=== PATIENT | female | born 2000 | race Caucasian/White ===

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

== ENCOUNTER 2022-12-13 11:19 | Outpatient (REF) | payer OTHER, SELFPAY ==
[2022-12-13 14:22] LABS: MANUAL DIFF FLAG NO
[2022-12-13 14:23] LABS: Basophils Absolute Auto 0.1 X10*3/uL (0.0-0.2); Eosinophils Absolute Auto 0.1 X10*3/uL (0.0-0.4); Eosinophils Percent Auto 1.7 % (0-4); Hematocrit 39.7 % (37.0-47.0); Hemoglobin 12.8 g/dl (12.0-16.0); Imm Gran Abs Auto 0.03 X10*3/uL (0.00-0.03); Imm Gran Pct Auto 0.4 % (0.0-0.4); Lymphocytes Absolute Auto 2.2 X10*3/uL (1.2-4.9); Lymphocytes Percent Auto 31.2 % (20-40); Mean Corpuscular HGB Conc 32.2 g/dl (31.0-35.0); Mean Corpuscular Hemoglobin 29.7 pg (27.0-33.0); Mean Corpuscular Volume 92.1 fL (80.0-98.0); Mean Platelet Volume 11.8 fL (9.4-12.3); Monocytes Absolute Auto 0.5 X10*3/uL (0.1-1.2); Monocytes Percent Auto 7.5 % (2-11); Neutrophils Absolute Auto 4.1 x10*3/uL (2.0-8.3); Neutrophils Percent Auto 58.2 % (45-73); Platelet Count 257 X10*3/uL (160-400); Red Blood Count 4.31 X10*6/uL (4.20-5.50); Red Cell Distribution Width 13.5 % (11.0-16.0)
[2022-12-13 15:15] LABS: Alanine Aminotransferase 8 U/L (0-31); Albumin Level 4.1 g/dL (3.5-5.0); Alkaline Phosphatase 67 U/L (39-117); Anion Gap 12 (12-20); Aspartate Amino Transferase 13 U/L (5-31); Bilirubin Total 0.8 mg/dL (0.0-1.0); Blood Urea Nitrogen 10 mg/dL (9-16); C Reactive Protein < 0.10 mg/dL (< or = 0.50); Calcium 9.5 mg/dL (8.4-10.2); Carbon Dioxide 24 mmol/L (22-29); Chloride 106 mmol/L (96-108); Cholesterol 156 mg/dL; Estimated Glomerular Filt Rate > 60; Glucose Fasting 86 mg/dL (60-99); HDL Cholesterol 67 mg/dL; LDL Cholesterol Calculated 79 mg/dl; Potassium 4.2 mmol/L (3.3-5.1); Sodium 138 mmol/L (135-145); Total Protein 7.1 g/dL (6.5-8.0); Triglycerides 53 mg/dL
[2022-12-13 15:35] LABS: Vitamin D 25-OH Total 32.2 ng/mL (>30)
[2022-12-13 15:38] LABS: Vitamin B12 430 pg/mL (200-900)
== END 2022-12-13 11:20 | disposition home or self-care (01) ==
LOC: HO.WFDLDS 11:19
PROVIDERS: Visit Provider Internal Medicine
DX: Z00.01 Encounter for general adult medical examination with abnormal findings (principal); Z13.1 Encounter for screening for diabetes mellitus; Z13.220 Encounter for screening for lipoid disorders; G44.52 New daily persistent headache (NDPH)
CPT/HCPCS: 36415; 80053; 80061; 82306; 82607; 82746; 84443; 85025; 86140

== ENCOUNTER → 2023-01-24 15:25 | Outpatient (BNVA) | payer OTHER, SELFPAY | PROVIDERS: PCP Internal Medicine; Visit Provider Nurse Practitioner Family ==

== ENCOUNTER 2023-01-24 15:41 | Outpatient (AMB) | payer OTHER, SELFPAY ==
--- NOTE | 2023-01-24 15:26 | A.OFFVIS_ITS ---
Intake Intake Visit Reasons: NPV Migraines (approved Vibha Mahajan)- Confirmed Intake Note: Pt is here today for migraines. States shes been suffering for years from headaches, has seen Neurologist and therapist c little to no relief . Allergies No Known Allergies Allergy (Verified 01/24/23 15:26) Medication List - Last Reconciled 01/24/23 by Nydia Mckinney, MIMI galcanezumab-gnlm (Emgality Pen) mg subcut topiramate (Topamax) 50 mg PO BID HPI HPI Comments History of Present Illness Details 22-yr-old female presents for new pt reema luation of headache disorder. Pt reports she developed a new headache 2 yrs ago on 01/20/21. From onset, the headache became constant. She denies any preceding infection, travel, injury. She has tried many acute and preventive medications w/ no or minimal effect. She has been followed by Dr Jarrett, neurologist close to her college in [place], who dx'd her w/ NDPH. Pt was offered Vyepti, however Since, pt has been referred to [facility]- consult scheduled for ? Mar. She states she had a similar headache when she was in middle school. It also came upon out of the blue suddenly, while in the middle of doing homework. The headcahe lasted for 1.5 yrs, and then one day just stopped. During that time, she had tried accupuncture and hypnosis. Headache questionnaire: Previous work-up? Brain/head MRI, MRV- normal. LP- OP 7 cmH2O w/ normal basic CSF studies, Eye exam- WNL. Typical headache characteristics: Prodrome symptoms? None Aura? None Location, quality, characteristics? Bifraontal pulsating, squeezing Pain intensity? Usualy 7-8/10. Every few months, more severe at 10/10 every 3-4 months (last one was 6 months). Associated symptoms? Sun-sensitivity. Focal weakness, Parethesias, Autonomic s/s? None Postdrome? None- constant Triggers? heat, weather changes Any positional, valsalva, exertional, sexual activity triggers? When headache is severe, sitting up makes it worse. Menstrual triggers? None. Menses is regular. Time of day? n/a- constant headache Duration and Frequency? Constant How does headache impact your life? May need to miss her activities/classes- but tries not to. 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 Current acute medication use/interventions: Nothing currently helping Previous acute medication use: Ubrelvy 50-100mg- ineffective, Nurtec- ineffective, Medrol 4mg- ineffective, Rizatriptan- not tolerated and ineffective, Naproxen- ineffective, Ibuprofen- ineffective, Tylenol- ineffective. Current preventative medication use: [] Previous preventative medication use: Venlafaxine 37.5-75mg- ineffective, Qulipta 60mg- made MATTHEWS worse, Duloxetine 20mg and 60mg- ineffective, Depakote 500mg- ineffective, Co-Q 10- ineffective, Mag- ineffective, B2- ineffective, Propranolol 10mg- made MATTHEWS worse, Emgality- ineffective, Topiramate- ineffective. Non-pharmacological interventions: PT- ineffective. Cupping- helps some. Pt also endorses- recent dizziness- however she attributes this to the increased summer heat. When severe, activity intolerance. Pt denies- any neck injuries, neck pain. [facility] Medical History New daily persistent headache (ndph) Surgical History No pertinent past surgical history Family History Maternal Grandfather Diabetes mellitus Paternal Grandmother Breast cancer Arrhythmia Social History Housing: House Alcohol intake: never Patient Tobacco Use Status: Never used Tobacco e-Cigarette/Vaping Use: Never Used service: No Current occupational status: employed and student Cognitive needs: No Hearing needs: No Vision needs: Yes Review of Systems Const Details: See scanned ROS form Physical Exam Const General: cooperative, healthy appearing, no acute distress and well developed Orientation/consciousness: patient oriented x3 Resp Effort & Inspection: normal respiratory effort and able to speak in complete sentences Neuro General: patient oriented x3 Cognition (Neuro): normal cognition Psych Appearance: grossly normal Mental Status: mental status grossly normal Speech and movement: Normal speech and movement present Affect: normal affect Attitude: cooperative Thought process: Normal thought process present Assessment & Plan Assessment & Plan (1) New daily persistent headache (ndph): Code(s): G44.52 - New daily persistent headache (NDPH) Plan Pt's headache s/s are consistent w/ NDPH. However her LP did show a low normal OP. I have advised her to try Aimovig 140mg sc q month, as she has not tried this before. Discussed that I concur w/ referral to the [facility], as they may be able to offer her more aggressive tx and further work-up. F/u in 3-4 months or sooner prn. Medications: New erenumab-aooe (Aimovig Autoinjector) 140 mg subcut ONCE 1 mL 6RF 30 days Telehealth Telehealth Location of provider rendering services: practice address Location of patient: address on file Patient Identification confirmed using: Name, : Yes Telehealth method: video Patient verbally consented to treatment: Yes Patient verbally consented to billing insurance company: Yes Patient informed of any privacy concerns related to visit: Yes Minutes spent on Phone/Video with Pt.: 40 Coding Level of Care Code Tele New Pt Level 4 (23907) Diagnoses New daily persistent headache (ndph) G44.52
== END 2023-01-24 16:00 ==
PROVIDERS: PCP Internal Medicine; Visit Provider Nurse Practitioner Family
DX: G44.52 New daily persistent headache (NDPH) (principal)
CPT/HCPCS: 99204

== ENCOUNTER 2023-06-06 14:25 | Outpatient (REF) | payer OTHER, SELFPAY | END 2023-06-06 14:26 | disposition home or self-care (01) | LOC: HO.HOSX 14:25 | PROVIDERS: PCP Internal Medicine; Visit Provider Orthopaedic Surgery | DX: M25.562 Pain in left knee (principal) | CPT/HCPCS: 73562 ==

== ENCOUNTER 2023-06-06 14:25 | Outpatient (AMB) | payer OTHER, SELFPAY ==
--- NOTE | 2023-06-06 14:26 | MHC.OFFVIS ---
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 She is experiencing a sharp pain on the inside of the left knee and is having trouble straightening it after having it bent for an extended period of time. She reports the onset of pain as March 2023, unsure of the cause, but assumes it is a sport related injury. 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 occupational status: employed and student Cognitive needs: No Hearing needs: No Vision needs: Yes Physical Exam Vital Signs: BMI result Body Mass Index 24.8 Const Other: Well-nourished well-developed very friendly female awake alert and oriented x3 in no acute distress Extrem Other: Left knee examination shows a minimal effusion, no crepitus with range of motion, tenderness along her medial joint line, positive Vladimir's test, no instability Results Reviewed Results Reviewed: X-rays of the patient's left knee show no significant degenerative changes, no acute bony abnormalities Assessment & Plan Assessment & Plan (1) Left knee pain: Code(s): M25.562 - Pain in left knee Plan Ms. Gamboa presents with left knee pain and mechanical symptoms possibly due to a tear of her medial meniscus. Thus, I will send her for an MRI of her left knee for further evaluation. She will contact me prior to her MRI should her symptoms worsen in any way. I spent 20 minutes in reviewing the patient's records and imaging studies, seeing the patient and documenting in the medical record. Orders: Orders XR knee LT 3V Today M25.562 - Pain in left knee MR knee LT wo con Today M25.562 - Pain in left knee Coding Level of Care Code New Pt Level 2 (23956) Diagnoses Left knee pain M25.562
[2023-06-06 14:28] VITALS: BMI 24.8
== END 2023-06-06 15:10 | disposition home or self-care (01) ==
PROVIDERS: PCP Internal Medicine; Visit Provider Orthopaedic Surgery
DX: M25.562 Pain in left knee (principal)
CPT/HCPCS: 99202

== ENCOUNTER 2023-06-07 15:39 | Outpatient (REF) | payer OTHER, SELFPAY | END 2023-06-07 15:40 | disposition home or self-care (01) | LOC: HO.MRI 15:39 | PROVIDERS: Visit Provider Orthopaedic Surgery | DX: M25.562 Pain in left knee (principal) | CPT/HCPCS: 73721 ==

== ENCOUNTER 2023-12-11 09:17 | Outpatient (AMB) | payer OTHER, SELFPAY ==
[2023-12-11 09:22] VITALS: BP 100/70; PULSE 80; O2SAT 100; BMI 25.9
--- NOTE | 2023-12-11 09:22 | MHC.PC.OV ---
Vital Signs 12/11/23 09:22 Height 5 ft 3 in Weight 146 lb BMI 25.9 BP 100/70 Blood Pressure Location Rt brachial Position Sitting Pulse 80 Pulse Source Pulse Oximeter Pulse Oximetry (%) 100 Oxygen Delivery Method Room Air Intake Visit Reasons: Annual PE Intake Note: Pt is here today for her PE Is last menstrual period known: Yes Last menstrual period: 11/27/23 Allergies No Known Allergies Allergy (Verified 12/11/23 09:48) Medication List - Last Reconciled 12/11/23 by Sulma White MD onabotulinumtoxinA (Botox) units intradermal Tobacco use date assessed: 12/11/23 Dental Screening Dental Screen Date: 12/11/23 Did you have a dental visit in the last 12 months?: Yes Did you have a dental problem in the last 6 months where you did not have access to dental care?: No Was dental information given to patient?: Patient has dentist HPI Annual PE HPI Details 23-year-old lady here today for physical exam. She is currently sees a neurologist in [place], gets Botox injections for headache prevention every 3 months which has been helping. She has been feeling well , stays active, avoids junk food, has no complaints at present time. 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 1. Little interest or pleasure in doing things: not at all 2. Feeling down, depressed, or hopeless: not at all 3. Trouble falling or staying asleep, or sleeping too much: several days 4. Feeling tired or having little energy: not at all 5. Poor appetite or overeating: not at all 6. Feeling bad about yourself - or that you are a failure or have let yourself or your family down: not at all 7. Trouble concentrating on things, such as reading the newspaper or watching television: not at all 8. Moving or speaking so slowly that other people could have noticed. Or the opposite - being so fidgety or restless that you have been moving around a lot more than usual: not at all 9. Thoughts that you would be better off or of hurting yourself in some way: not at all Total score: 1 Depression Screening Interpretation: Negative Depression Screening Done: Yes 76150 - PHQ-9 Billing: Yes Source: Developed by Drs. Klever José, Shawnee Brandt, Pavel Narayan and colleagues, with an educational prieto from [employer]. Thrive Questionnaire Date Thrive assessed: 12/11/23 I am a: Patient What is your living situation today?: I have a steady place to live Within the past 12 months, did the food you bought not last and you didn't have the money to get more?: Never true Within the past 12 months, did you worry whether your food would run out before you got money to buy more?: Never true Do you have trouble paying for medicines?: No Do you have trouble getting transportation to medical appointments?: No Do you have trouble paying your heating and electricity bill?: No Do you have trouble taking care of your child, family member or friend?: No Do you have trouble with day-to-day activities such as bathing, preparing meals, shopping, managing finances, etc.?: No Are you currently unemployed and looking for a job?: No Are you interested in more education?: No THRIVE Score: 0 AUDIT C Alcohol Use Questionnaire (AUDIT-C) 1. How often do you have a drink containing alcohol?: Monthly or less 2. How many drinks containing alcohol do you have on a typical day when you are drinking?: 3 or 4 3. How often do you have six or more drinks on one occasion?: Never Total Score: 2 LILO-7 AMB Questionnaire LILO-7 Date LILO - 7 assessed: 12/11/23 Feeling nervous, anxious, or on edge: 0 = Not at all Not being able to stop or control worryin = Not at all Worrying too much about different things: 0 = Not at all Trouble relaxin = Not at all Being so restless that it is hard to sit still: 0 = Not at all Becoming easily annoyed or irritable: 0 = Not at all Feeling afraid as if something awful might happen: 0 = Not at all Total LILO-7 score (0-4 normal; 5-9 mild; 10-14 moderate; 15-21 severe): 0 Source: Developed by Drs. Klever José, Shawnee Brandt, Pavel Narayan and colleagues, with an educational prieto from [employer]. LILO-7 Assessment Billing LILO-7 Assessment Tool: LILO-7 Assessment 79092 Review of Systems Const Denies body aches, Denies fatigue, Denies fever(s), Denies lethargy and Denies weakness Eyes Denies change in vision ENT Denies dizziness, Denies nasal congestion, Denies nasal discharge and Denies sore throat Card Denies chest pain, Denies lightheadedness, Denies palpitations and Denies dyspnea Resp Denies chest congestion, Denies cough, Denies dyspnea and Denies wheezing GI Denies abdominal pain, Denies change in bowel habits and Denies heartburn Denies hematuria, Denies urinary frequency, Denies dysuria and Denies urinary urgency Musc Reports no additional complaints Skin/Breast Denies breast pain, Denies breast mass, Denies lesions and Denies rash Neuro Denies dizziness, Denies Sensory deficit (Neuro) and Denies weakness Psych Reports no additional complaints Endo Denies fatigue, Denies polydipsia, Denies polyuria and Denies palpitations Isaiah/Lymph Denies easy bruising Aller/Immun Denies seasonal rhinorrhea and Denies wheezing Physical exam (Primary Care) Vital Signs: Last Vital Signs Pulse 80 12/11/23 09:22 BP 100/70 12/11/23 09:22 Pulse Ox 100 12/11/23 09:22 Oxygen Delivery Method Room Air 12/11/23 09:22 BMI result Body Mass Index 25.9 Tobacco/Smoking Status: Tobacco use Status Tobacco use date assessed 12/11/23 12/11/23 09:32 Patient Tobacco Use Status Never used Tobacco 12/11/23 09:23 e-Cigarette/Vaping Use Never Used 12/11/23 09:23 PHQ-9: PHQ-9 Score PHQ-9: Total score 1 12/11/23 09:32 Depression Screening Interpretation: Negative Thrive Assessment: Date of Thrive Assessment Date Thrive assessed 12/11/23 12/11/23 09:32 Const General: no acute distress Nutritional Appearance: average body habitus Orientation/consciousness: patient oriented x3 Limitations: no limitations HENMT Head: Yes normocephalic Ears: hearing grossly normal bilaterally, external ears normal, TM's normal bilaterally and EAC's normal General nose exam: Normal external nose present Face and sinus: Yes face symmetric Mouth: Normal oral and palatal mucosa present, oropharynx normal and moist mucous membranes Eyes General: appearance normal, both eyes and all related structures Periorbital: periorbital findings normal Pupils: Equal, round and reactive pupils present EOM: EOMs intact bilaterally Neck Neck: Yes full ROM, Yes no lymphadenopathy and Yes supple Thyroid: Thyroid normal Chest Chest palpation & inspection: normal inspection of the chest Breast/axilla inspection: normal inspection of the breasts Breast/axilla palpation: normal palpation of the breasts Resp Effort & Inspection: normal respiratory effort and able to speak in complete sentences Auscultation: clear to auscultation bilaterally Cardio Palpation: normal PMI Rate: regular rate Rhythm: regular rhythm Heart sounds: S1 normal heart sound present and S2 normal heart sound present GI Inspection: Yes normal to inspection Palpation (GI): Soft to palpation, nontender, no guarding and no masses Auscultation: normal bowel sounds General: Yes no CVA tenderness and Yes deferred Back/Spine/Pelvis Back: no CVA tenderness and No back tenderness Skin Other: Positive navel piercing General skin exam: no rashes or lesions noted Lesions: no lesions Rashes: no rashes Neuro General: patient oriented x3, gait normal, tone normal, moves all extremities, Normal light touch and pain sensation, no focal motor deficits and CN's II-XI intact bilaterally Cranial nerves: Yes Equal, round and reactive pupils present Cognition (Neuro): normal cognition Gait exam (Neuro): Normal gait present Motor exam (neuro): 5/5 motor strength present throughout Sensory Exam: No Sensory deficit (Neuro) Extrem General: Yes full ROM, Yes no joint enlargement, Yes no clubbing, cyanosis or edema and Yes normal gait Psych Appearance: grossly normal Mental Status: mental status grossly normal Speech and movement: Normal speech and movement present Affect: normal affect Thought process: Normal thought process present Thought content: Normal thought content present Assessment and Plan Assessment & Plan (1) Annual visit for general adult medical examination with abnormal findings: Code(s): Z00.01 - Encounter for general adult medical examination with abnormal findings Plan: Fasting labs ordered today, continue with regular dental prophylaxis every 6 months, recently had Lasix surgery 06/2023 in [place]. Has had COVID vaccines in the past but does not want to get the booster, reminded to get her yearly flu shot, up-to-date with Tdap. Not sexually active, patient deferred getting pelvic exam and Pap smear at this time (2) New daily persistent headache (ndph): Code(s): G44.52 - New daily persistent headache (NDPH) Plan: Currently seeing sees a neurologist in [place], gets Botox injections on scalp every 3 months which has been helping, copy of last office visit requested Orders: Orders Glucose Fasting Today G44.52 - New daily persistent headache (NDPH), Z00.01 - Encounter for general adult medical examination with abnormal findings, Z13.1 - Encounter for screening for diabetes mellitus, Z13.220 - Encounter for screening for lipoid disorders Vitamin D 25-OH Total Today G44.52 - New daily persistent headache (NDPH), Z00.01 - Encounter for general adult medical examination with abnormal findings, Z13.1 - Encounter for screening for diabetes mellitus, Z13.220 - Encounter for screening for lipoid disorders, Z98.890 - Other specified postprocedural states Lipid Panel Today G44.52 - New daily persistent headache (NDPH), Z00.01 - Encounter for general adult medical examination with abnormal findings, Z13.1 - Encounter for screening for diabetes mellitus, Z13.220 - Encounter for screening for lipoid disorders, Z98.890 - Other specified postprocedural states Coding Level of Care Code Est Pt Prev Care 18-39y(25520) Diagnoses Annual visit for general adult medical examination with abnormal findings Z00.01 New daily persistent headache (ndph) G44.52 Additional Codes LILO-7 Assessment Billing - LILO-7 Assessment Tool: LILO-7 Assessment 36977 ([id number])
== END 2023-12-11 09:56 | disposition home or self-care (01) ==
PROVIDERS: Visit Provider Internal Medicine
DX: Z00.00 Encounter for general adult medical examination without abnormal findings (principal); G44.52 New daily persistent headache (NDPH)
CPT/HCPCS: 99395

== ENCOUNTER 2025-02-07 10:18 | Outpatient (AMB) | payer OTHER, SELFPAY ==
[2025-02-07 10:35] VITALS: BP 110/60; PULSE 90; O2SAT 99; BMI 24.8
--- NOTE | 2025-02-07 10:35 | A.OFFVIS_ITS ---
Vital Signs 02/07/25 10:35 Height 5 ft 3 in Weight 140 lb BMI 24.8 BP 110/60 Blood Pressure Location Rt brachial Position Sitting Pulse 90 Pulse Source Pulse Oximeter Pulse Oximetry (%) 99 Oxygen Delivery Method Room Air Intake Visit Reasons: Re-evaluation for botox Intake Note: Pt is here today for migraines. States shes been suffering for years from headaches, has seen Neurologist and therapist c little to no relief . [facility] Required: No Accompanied by: Self / Same As Patient Allergies No Known Allergies Allergy (Verified 02/07/25 10:48) HPI Comments Details: 24-yr-old female presents for follow-up of chronic migraine to reestablish care, as she has moved back to the area after graduating from college. Since the last visit, she started seeing a neurologist in [facility], who started her on Botox over a year ago. She was doing the botox every 3 months. She reports the botox helps to reduce the intensity of her migraine attacks, until the last 2 weeks of her botox injection cycle. Her last Botox injection was on 12/30/2024. She reports that her previous neurologist was considering augmenting her migraine treatment regimen, but then advise patient to follow-up on this upon return home She is not currently on any other preventive or abortive tx's. She states her last headcahe free day was 01/19/2021. 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 01/24/2023, initial HPI: 22-yr-old female presents for new pt evaluation of headache disorder. Pt reports she developed a new headache 2 yrs ago on 01/20/21. From onset, the headache became constant. She denies any preceding infection, travel, injury. She has tried many acute and preventive medications w/ no or minimal effect. She has been followed by Dr Jarrett, neurologist close to her college in [place], who dx'd her w/ NDPH. Pt was offered Vyepti, however Since, pt has been referred to [facility]- consult scheduled for ? Mar. She states she had a similar headache when she was in middle school. It also came upon out of the blue suddenly, while in the middle of doing homework. The headcahe lasted for 1.5 yrs, and then one day just stopped. During that time, she had tried accupuncture and hypnosis. Headache questionnaire: Previous work-up? Brain/head MRI, MRV- normal. LP- OP 7 cmH2O w/ normal basic CSF studies, Eye exam- WNL. Typical headache characteristics: Prodrome symptoms? None Aura? None Location, quality, characteristics? Bifraontal pulsating, squeezing Pain intensity? Usualy 7-8/10. Every few months, more severe at 10/10 every 3-4 months (last one was 6 months). Associated symptoms? Sun-sensitivity, nausea Focal weakness, Parethesias, Autonomic s/s? None Postdrome? None- constant Triggers? heat, weather changes Any positional, valsalva, exertional, sexual activity triggers? When headache is severe, sitting up makes it worse. Menstrual triggers? None. Menses is regular. Time of day? n/a- constant headache Duration and Frequency? Constant How does headache impact your life? May need to miss her activities/classes- but tries not to. 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 Current acute medication use/interventions: Nothing currently helping Previous acute medication use: Ubrelvy 50-100mg- ineffective, Nurtec- ineffective, Medrol 4mg- ineffective, Sumatriptan- ineffective, Rizatriptan- not tolerated and ineffective, Naproxen- ineffective, Ibuprofen- ineffective, Tylenol- ineffective. Current preventative medication use: none Previous preventative medication use: Venlafaxine 37.5-75mg- ineffective, Qulipta 60mg- made MATTHEWS worse, Duloxetine 20mg and 60mg- ineffective, Depakote 500mg- ineffective, Co-Q 10- ineffective, Mag- ineffective, B2- ineffective, Propranolol 10mg- made MATTHEWS worse, Emgality- ineffective, Topiramate- ineffective. Non-pharmacological interventions: PT- ineffective. Cupping- helps some. Pt also endorses- recent dizziness- however she attributes this to the increased summer heat. When severe, activity intolerance. Pt denies- any neck injuries, neck pain. [facility] Medical History (Updated 02/07/25 @ 16:51 by MIMI Correa) New daily persistent headache (ndph) Surgical History History of arthroscopy of left knee Hx of LASIK No pertinent past surgical history Family History Maternal Grandfather Diabetes mellitus Paternal Grandmother Breast cancer Arrhythmia Social History Housing: House Alcohol intake: never Patient Tobacco Use Status: Never used Tobacco e-Cigarette/Vaping Use: Never Used service: No Current occupational status: employed and student Cognitive needs: No Hearing needs: No Vision needs: Yes Review of Systems Const Details: See scanned ROS form Physical Exam Vital Signs: Last Vital Signs Pulse 90 02/07/25 10:35 BP 110/60 02/07/25 10:35 Pulse Ox 99 02/07/25 10:35 Oxygen Delivery Method Room Air 02/07/25 10:35 BMI result Body Mass Index 24.8 Const General: cooperative, healthy appearing, no acute distress and well developed Orientation/consciousness: patient oriented x3 Resp Effort & Inspection: normal respiratory effort and able to speak in complete sentences Neuro General: patient oriented x3 Cognition (Neuro): normal cognition Psych Appearance: grossly normal Mental Status: mental status grossly normal Speech and movement: Normal speech and movement present Affect: normal affect Attitude: cooperative Thought process: Normal thought process present Telehealth Telehealth Location of provider rendering services: practice address Location of patient: address on file Patient Identification confirmed using: Name, : Yes Telehealth method: video Patient verbally consented to treatment: Yes Patient verbally consented to billing insurance company: Yes Patient informed of any privacy concerns related to visit: Yes Minutes spent on Phone/Video with Pt.: 40 Assessment & Plan Assessment & Plan (1) Chronic migraine without aura without status migrainosus, not intractable: Code(s): G43.709 - Chronic migraine without aura, not intractable, without status migrainosus Category: Medical (2) New daily persistent headache (ndph): Code(s): G44.52 - New daily persistent headache (NDPH) Category: Medical Plan For overall headache management: * Optimize good self-care, including but not limited to maintaining a healthy diet, adequate fluid intake, adequate sleep, and engaging in regular physical activity. * Track headaches and both positive and negative effects of your headache treatment trials, especially after any treatment regimen changes. * Migraine Buddies is one of many headache tracking apps. * A simple paper calendar is also a good option. For acute (as needed) headache treatment: It is important to take acute medications at the first sign of headache. However, please be aware that frequently using most acute medications may increase the frequency of your headache attacks, as well as make your other arnoldo tments less effective. * Start Elyxyb, 120mg liquid solution, at onset of migraine attack. Max of 120 mg dose per day. * Trial Sumatriptan 6 mg subcutaneous injection: * Inject 1 injection at onset of migraine attack, you may repeat in 1 hour. Max of 2 injections per per 24 hours. * May take sumatriptan with OTC Tylenol 650-1,000mg every 4-6 hours, Ibuprofen (liquid gels) 600mg every 6 hours, or Naproxen (liquid gels) 440mg q 12 hrs prn. * Potential adverse effects of injectable triptans, include but are not limited to injection site irritation, nausea, fatigue, chest tightness/tingling (usually passes within a few minutes), medication overuse headaches. * Start Trudhesa (Dihydroergotamine Nasal [place]) * One spray in each nostril (total 2 sprays = 1.45 mg). * If needed: You may repeat after 1 hour. * Maximum: 4 sprays in 24 hours (2 doses). Do not use more than 6 sprays (3 doses) in 7 days.[id number] Instructions * Prime the device (first use only): [place] into the air 4 times. * Prepare: Blow your nose gently before using. [place]: * Insert the nozzle into one nostril. * Close the other nostril with your finger. * While breathing in gently through your nose, press the plunger all the way down. * Repeat in the other nostril if your dose requires it. Important Safety Notes * Do not use if you have developed heart disease, uncontrolled high blood pressure, circulation problems, or if you?ve recently taken another migraine medicine like a triptan or ergotamine. * Common side effects may include nasal congestion, altered taste, or mild irritation. Previous acute migraine medication trials: Ubrelvy 50-100mg- ineffective, Nurtec- ineffective, Medrol 4mg- ineffective, Sumatriptan- ineffective, Rizatriptan- not tolerated and ineffective, Naproxen- ineffective, Ibuprofen- ineffective, Tylenol- ineffective. Acute migraine medication contraindications: Considered Cambia- however holf for now as NSAIDs have induced migraine before For headache prevention medication: Preventative medications should be taken routinely as prescribed for best effect, it may take several weeks for full effect to take effect. * Continue Botox 155 units IM every 12 weeks (advised to schedule Botox every 12 weeks rather than every 3 months, to reduce risk for wearing off) * Last Botox injection was on 12/30/2024 at patient's previous neurology office * As Botox has been helpful, but not fully effective and patient is experiencing reduced intensity but still daily headache and end of cycle breakthrough severe migraine, resume Ajovy 675 mg subcutaneous injection every 90 days (administer at the midway point between Botox injections)- in hopes together these will be more effective than when previously tried on their own. Previous migraine prevention medication trials: Venlafaxine 37.5-75mg- ineffective, Qulipta 60mg- made MATTHEWS worse, Duloxetine 20mg and 60mg- ineffective, Depakote 500mg- ineffective, Co-Q 10- ineffective, Mag- ineffective, B2- ineffective, Propranolol 10mg- made MATTHEWS worse, Emgality- ineffective, Topiramate- ineffective. ?Aimovig x?s 3 months-ineffective. Migraine prevention medication contraindications: Depakote- few to female child. We will follow-up upon review of above and with a follow-up clinic visit in 6 months or sooner as needed. Medications: New dihydroergotamine (Trudhesa) 1 actuation in each nostril x1, may repeat dose x1 after 1h intranasally once; (Max: 4 actuations/day, 6 actuations/wk). Do NOT take w/in 24 hrs of a TRIPTAN. 4 mL 6RF prolonged migraine 28 days G43.109 - Migraine with aura, not intractable, without status migrainosus onabotulinumtoxinA (Botox) inject 155 units IM across forehead, scalp, and neck 200 units IM ONCE 1 ea 3RF 12 weeks G43.709 - Chronic migraine without aura, not intractable, without status migrainosus celecoxib (Elyxyb) administer as needed the fewest number of days per month 120 mg (4.8 mL) PO DAILY PRN 28.8 mL 6RF migraine headache 30 days sumatriptan succinate 6 mg subcutaneously At onset of severe migraine attack a/w nausea, may repeat in 1 hour PRN; 6 mL 6RF Severe migraine attack with nausea 30 days MDD 12 mg Coding Level of Care Code Est Pt Level 4 (59533) Diagnoses Chronic migraine without aura without status migrainosus, not intractable G43.709 New daily persistent headache (ndph) G44.52
--- OUTSIDE RECORDS SUMMARY | 2025-02-07 11:23 | XMS_ITS | Encounter Summary ---
Author Organization [facility] Address [address] [place] [phone] Phone Care Team Providers Care Or Rn Name Role Phone Charlotte Chang MD Primary Care Provider [phone] Encounter Details Date Type Department Care Team (Late st Contact Info) Description 10/22/2017 Conversion Encounter [facility] [address] [place] [address] Julianne Ma MD Social History Tobacco Use Types Packs/Day Years Used Date Smoking Tobacco: Never Assessed Comments Unknown Sex and Gender Information Value Date Recorded Sex Assigned at Female 09/28/2020 3:14 PM EDT Legal Sex Female 6:22 PM EDT Gender Identity Female 09/28/2020 3:14 PM EDT Sexual Orientation Straight 09/28/2020 3: 14 PM EDT documented as of this encounter Plan of Treatment Not on file documented as of this encounter Visit Diagnoses Not on filedocumented in this encounter Care Teams Or Rn Relationship Specialty Start Date End Date Charlotte Chang MD [address] [place] [address] PCP - General Pediatrics 10/07/22 05/19/24 documented as of this encounter
--- OUTSIDE RECORDS SUMMARY | 2025-02-07 11:23 | XMS_ITS | Patient Health Record ---
Author Organization [facility] Address [address] [place] [address] Care Team Providers Care Military Cook Name Role Phone Julianne Ma Primary Care Provider Massiel Diaz Unavailable [phone] Reason For Referral No Information Medications Medication SIG (Take, Route, Frequency, Duration) Notes Start Date End Date Status School Note . . . Pt was seen in [facility] today; Duration: . 03/06/2019 Active vitamin as directed Active Social History Tobacco Use: Social History Observation Description Date Details (start date - stop date) Never Smoker NA - NA Tobacco Use/Smoking Question Answer Notes Are you a: nonsmoker Alcohol Screen Question Answer Notes Did you have a drink containing alcohol in the p ast year? No Points 0 Interpretation Negative Problems No Known Problems Plan Of Treatment Pending Test Test Name Order Date X ray : Foot, left 3V 10/02/2012 X ray : Foot, right 3V 02/08/2019 X ray : Foot, right 3V 10/02/2012 Insurance Providers Payer Name Payer Address Payer Phone Subscriber Number Group Number Insured Name Patient Relationship to Insured Coverage Start Date Coverage End Date [facility] [address] [address] [place] [address] [id number] Edmundo Gamboa Natural Child - Insured has Financial Responsibility Medical (General) History Medical History History ICD Code Broken Bones Plantar Fasciitis Surgical History Surgery Date(Month/Year) closed red L Ankle 2013 [place] 2018
--- OUTSIDE RECORDS SUMMARY | 2025-02-07 11:23 | XMS_ITS | Clinical Summary ---
Author Organization [facility] Address [address] [place] [phone] Phone Care Team Providers Care Implementation Engineer Name Role Phone Unavailable Primary Care Provider Unavailabl e Allergies No known active allergies Medications Multiple Vitamin (MULTIVITAMIN) tablet Take 1 tablet by mouth daily. Active Active Problems Problem Noted Date Diagnosed Date Influenza vaccine refused 08/20/2018 Headache 03/19/2015 Overview (02/03/2021): Starting PT in [place] for bilateral MATTHEWS that is interferingher from playing soccer Resolved Problems Problem Noted Date Diagnosed Date Resolved Date Plantar fasciitis of left foot 08/20/2018 09/29/2020 Overview (02/09/2019): 02/08/19: [facility] consult Assessment & Plan (09/27/2019 2:51 PM EDT): No longer an issue unless running, followed by podiatry. Assessment & Plan (08/20/2018 4:20 PM EDT): Intermittent aggravation. Does not wear inserts that mom bought her. Has not been doing exercises provided by dance PT. Offered list of podiatrists for family to explore however reviewed basis of treatment including antiinflammatory meds, exercise and supportive shoe inserts. Headache 03/19/2015 09/27/2019 Overview (08/13/2018): Headache Assessment & Plan (09/27/2019 2:50 PM EDT): Resolved. Assessment & Plan (08/20/2018 4:32 PM EDT): Gets headache about once every 2 weeks- manageable without meds. Not missing school. Not seeing Neurology at this time. Immunizations Immunization Administration Dates Next Due DTaP 08/14/2007, 4,02/13/2003,12/10,2002 Hep B, ped/adol 05/22/2003,2002,2002 Hib (PRP-T) 11/19/2003, 3,2002,10/15 IPV 08/14/2007, 3,2002,10/15 Influenza, injectable, quadrivalent 06/02/2020,1 06/08/2010,03/01/2010 Influenza, injectable, triva lent, preservative free 04/12/2005,04/15/2004,05/22/2003 MMR 09/04/2003 MMRV 08/08/2006 Meningococcal Conj (Menactra) MCV4P 08/20/2018,0 09/27/2013 Pneumococcal Conjugate 04/15/2004,2002,2002,10/15 Tdap 09/27/2013 Varicella 09/04/2003 Family History Medical History Relation Name Comments No Known Problems Father Edmundo No Known Problems Father's Brother No Known Problems Father's Sister Diabetes Maternal Grandfather Hyperlipidemia Maternal Grandfather Hypertension Maternal Grandmother No Known Problems Mother Melany Hyperlipidemia Paternal Grandfather Hyperlipidemia Paternal Grandmother Parkinsonism Paternal Grandmother Relation Name Status Comments Father Edmundo Alive Father's Brother Alive Father's Sister Alive Maternal Grandfather Alive Maternal Grandmother Alive Mother Melany Alive Paternal Grandfather Alive Paternal Grandmother Alive Sister Lianna Alive Social History Tobacco Use Types Packs/Day Years Used Date Smoking Tobacco: Never Smokeless Tobacco: Never Alcohol Use Standard Drinks/Week Comments Never 0 (1 standard drink = 0.6 oz pur e alcohol) Hunger/Food Answer Date Recorded In the last 12 months, did y ou or your family ever eat less than you felt you should because there wasn't enough money for food? No 09/26/2020 Stable Housing Answer Date Recorded Are you worried that in the next 2 months you may not have stable housing? No 09/26/2020 Transportation Concerns Answer Date Rec orded In the last 12 months, have you or your family ever had to go without healthcare because you didn't have a way to get there? No 09/26/2020 Hazards in Home Answer Date Recorded Think about the place you li ve. Do you have problems with any of the following? Pests (mice or roaches), mold, no/not working smoke detectors, water leaks, no window guards. No 2020 Financing Utilities Answer Date Recorde d In the last 12 months, has t he electric, gas, oil, or water company threatened to shut off your services in your home? No 09/26/2020 Safety at Home Answer Date Recorded Are you or your family worried about feeling saf e in your home? No 09/26/2020 Outside Support Answer Date Recorded Do you feel that you need mo re support from other people or programs to help you care for yourself or your family? No 09/26/2020 Understanding Health Concerns Answer Da te Recorded Do you need help understandi ng your or your child's healthcare needs (diagnosis, medications, plan, etc.)? No 09/26/2020 Financing Health Concerns Answer Date R ecorded In the last 12 months, was t here a time when your child needed to see a doctor or get medications or supplies but could not because of cost? No 09/26/2020 Missing School or Work Answer Date Jose rded Did you or your child miss s chool or work because of a health problem that could have been avoided? No 09/26/2020 Comments No Sex and Gender Information Value Date Recorded Sex Assigned at Female 09/28/2020 3:14 PM EDT Legal Sex Female 6:22 PM EDT Gender Identity Female 09/28/2020 3:14 PM EDT Sexual Orientation Straight 09/28/2020 3: 14 PM EDT Last Filed Vital Signs Vital Sign Reading Time Taken Comments Blood Pressure 120/68 09/28/2020 2:51 PM EDT Pulse 100 05/19/2015 12:00 AM EST Temperature 38 C (100.4 F) 06/13/2019 11:04 AM EST Respiratory Rate - - Oxygen Saturation - - Inhaled Oxygen Concentration - - Weight 61.3 kg (135 lb 3.2 oz) 09/28/2020 2:51 P M EDT Height 160 cm (5' 3 ) 09/28/2020 2:51 PM EDT Body Mass Index 23.95 09/28/2020 2:51 PM EDT Plan of Treatment Health Maintenance Due Date Last Done Comments HPV Vaccines (1 - 3-dose series) 2017 Men B Vaccine (1 of 2 - Standard) 2018 DTaP,Tdap,and Td Vaccines (7 - Td or Tdap) 09/28/2023 09/27/2013, 08/14/2007, 11/19/2003, Additional history exists Influenza Vaccines (#1) 2025 06/02/20 20, 04/08/2011, 03/01/2010, Additional history exists COVID-19 Vaccine ( season) 2025 05/31/2021, 10/13/2020, 09/23/2020 Hepatitis B Vaccines Completed 05/22/2003, 2002, 2002 HIB Vaccines Completed 11/19/2003, 02/03, 2002, Additional history exists Pneumococcal Vaccine Completed 04/15/2004, 02/13/2003, 2002, Additional history exists MMR Vaccines Completed 08/08/2006, 09/04/2003 Varicella Vaccines Completed 08/08/2006, 09/04/2003 IPV Vaccines Completed 08/14/2007, 05/05, 2002, Additional history exists Meningococcal Vaccine Completed 08/20/2018, 014 Hepatitis A Vaccines Aged Out No long er eligible based on patient's age to complete this topic Procedures * Due to [place] Eachbaby law, this organization might not be sharing sensitive test results. Procedure Name Priority Date/Time Associated Diagnosis Comments CHLAMYDIA AND GONORRHEA, AMPLIFIED Routine 09/28/2020 3:43 PM EDT Encounter for screening examination for sexually transmitted disease from Last 3 Months or Most Recently Relevant to Health Maintenance Results * Due to [place] Eachbaby law, this organization might not be sharing sensitive test results. * Chlamydia and Gonorrhoea, Amplified (09/28/2020 3:43 PM EDT) Chlamydia Trachomatis, DNA Probe NEGATIVE (NEG) [facility] Comment: No Chlamydia Trachomatis RNA detected in this patient's sample (REFERENCE RANGE/NORMAL VALUE: NOT DETECTED) Note: This test uses crepe sole wire brusher- mediated amplification method to detect rRNA from C. Trachomatis URINE GC AMP PROBE NEGATIVE (NEG) [facility] Comment: No Neisseria Gonorrhoeae RNA detected in this patient's sample (REFERENCE RANGE/NORMAL VALUE: NOT DETECTED) NOTE: This test uses crepe sole wire brusher-mediated amplification method to detect rRNA from N.Gonorrhoeae. A negative result does not preclude infection. In the case of a negative urine result, testing of an endocervical(female) or urethral (male) specimen is recommended if there is high clinical suspicion of infection. Due to very high sensitivity of Nucleic Acid Amplification Test, false positive results may occur. Therefore, specimen handling is extremely important. In patients in whom the disease is unlikely, additional sample for testing should be considered after an initial positive result. The performance characteristics of this test have not been evaluated in children. The Aptima Combo2 assay is not intended for the evaluation of suspected sexual abuse or for other medico-legal indications. The ordering provider should assess if the patient had consensual sex without risk of sexual abuse. Consult the [facility] if needed. Contact phone number . Therapeutic failure or success cannot be determined with the Aptima Combo2 assay since nucleic acid may persist following appropriate antimicrobial therapy. The Centers for Disease Control and Prevention (CDC) recommends confirmatory retesting using culture or a different nucleic acid amplification test when positive results occur, if indicated. Testing performed or reported by [facility], a Service of [facility], [address] [place] [address] Mervin Paniagua MD, Welder Setter Electron Beam Machine Urine (Urine) 09/28/2020 3:4 3 PM EDT 09/29/2020 12:25 AM EDT us Julianne Ma MD LAB MICROBIOLOGY - GENERAL ORDER ADALBERTO Final Result [facility] from Last 3 Months or Most Recently Relevant to Health Maintenance Insurance [place]
== END 2025-02-07 11:25 | disposition home or self-care (01) ==
LOC: HO.HSMS 10:18
PROVIDERS: PCP Internal Medicine; Visit Provider Nurse Practitioner Family
DX: G43.709 Chronic migraine without aura, not intractable, without status migrainosus (principal); G44.52 New daily persistent headache (NDPH)
CPT/HCPCS: 99214

== ENCOUNTER → 2025-02-07 10:18 | Outpatient (BNVA) | payer OTHER, SELFPAY | PROVIDERS: PCP Internal Medicine; Visit Provider Nurse Practitioner Family | DX: G43.709 Chronic migraine without aura, not intractable, without status migrainosus (principal); G44.52 New daily persistent headache (NDPH); Z13.89 Encounter for screening for other disorder ==

== ENCOUNTER 2025-04-01 10:13 | Outpatient (AMB) | payer OTHER, SELFPAY ==
--- NOTE | 2025-04-01 10:17 | A.OFFVIS_ITS ---
Vital Signs 04/01/25 10:18 Height 5 ft 3 in Weight 135 lb BMI 23.9 BP 110/68 Blood Pressure Location Rt brachial Position Sitting Pulse 88 Pulse Source Pulse Oximeter Pulse Oximetry (%) 96 Oxygen Delivery Method Room Air Intake Visit Reasons: Botox Intake Note: Botox Filling Layer Up Required: No Accompanied by: Self / Same As Patient Allergies No Known Allergies Allergy (Verified 04/01/25 10:18) HPI Comments Details: ? 42y/o female comes for treatment of migraines with botox. ??? Most frequent reported adverse reactions following injection of botox for chronic migraine include neck pain (9%), headache(5%), eyelid ptosis(4%), migraine(4%), muscular weakness(4%), musculuskeletal stiffness(4%), bronchitis(3%), injection site pain (3%), musculoskeletal pain(3%), myalgia(3%), facial paresis(2%), HTN(2%) and muscle spasms(2%) were discussed in detail. ??? Botulinum toxin typeA 200units Lot no [id number] expiration November 2023 was diluted with 4 cc of normal saline . ??? Muscles injected- ??? Frontalis 4 sites ??? Procerus 1 site ??? Pomologist- 2 sites ??? Temporalis- 8 sites ??? Occipitalis- 6 sites ??? Cervical paraspinals- 4 sites ??? Trapezius- 6 sites- 10 units each ??? 5 units each in 31 site ??? Total use- 185units ??? Discarded-15units [facility] Medical History (Updated 02/07/25 @ 16:51 by MIMI Correa) New daily persistent headache (ndph) Surgical History History of arthroscopy of left knee Hx of LASIK No pertinent past surgical history Family History Maternal Grandfather Diabetes mellitus Paternal Grandmother Breast cancer Arrhythmia Social History Housing: House Alcohol intake: never Patient Tobacco Use Status: Never used Tobacco e-Cigarette/Vaping Use: Never Used service: No Current occupational status: employed and student Cognitive needs: No Hearing needs: No Vision needs: Yes Physical Exam Vital Signs: Last Vital Signs Pulse 88 04/01/25 10:18 BP 110/68 04/01/25 10:18 Pulse Ox 96 04/01/25 10:18 Oxygen Delivery Method Room Air 04/01/25 10:18 BMI result Body Mass Index 23.9 Coding
--- NOTE | 2025-04-01 10:17 | MHC.OFFVIS ---
Vital Signs 04/01/25 10:18 Height 5 ft 3 in Weight 135 lb BMI 23.9 BP 110/68 Blood Pressure Location Rt brachial Position Sitting Pulse 88 Pulse Source Pulse Oximeter Pulse Oximetry (%) 96 Oxygen Delivery Method Room Air Intake Visit Reasons: Botox Intake Note: Botox Day Camp Counselor Required: No Accompanied by: Self / Same As Patient Allergies No Known Allergies Allergy (Verified 04/01/25 10:18) Medication List - Last Reconciled 04/01/25 by Emelyn Morales MD fremanezumab-vfrm (Ajovy) 675 mg (4.5 mL) subcut ONCE 90 days onabotulinumtoxinA (Botox) 200 units IM ONCE 12 weeks HPI Comments Details: ? 24/o female comes for treatment of migraines with botox. ??? Most frequent reported adverse reactions following injection of botox for chronic migraine include neck pain (9%), headache(5%), eyelid ptosis(4%), migraine(4%), muscular weakness(4%), musculuskeletal stiffness(4%), bronchitis(3%), injection site pain (3%), musculoskeletal pain(3%), myalgia(3%), facial paresis(2%), HTN(2%) and muscle spasms(2%) were discussed in detail. ??? Botulinum toxin typeA 200units Lot no [id number] expiration was diluted with 4 cc of normal saline . ??? Muscles injected- ??? Frontalis 4 sites ??? Procerus 1 site ??? Chief Commercial Officer- 2 sites ??? Temporalis- 8 sites ??? Occipitalis- 6 sites ??? Cervical paraspinals- 4 sites ??? Trapezius- 6 sites- 5 units each ??? 5 units each in 31 site ??? Total use- 155units ??? Discarded-45units [facility] Medical History New daily persistent headache (ndph) Surgical History History of arthroscopy of left knee Hx of LASIK No pertinent past surgical history Family History Maternal Grandfather Diabetes mellitus Paternal Grandmother Breast cancer Arrhythmia Social History Housing: House Alcohol intake: never Patient Tobacco Use Status: Never used Tobacco e-Cigarette/Vaping Use: Never Used service: No Current occupational status: employed and student Cognitive needs: No Hearing needs: No Vision needs: Yes Physical Exam Vital Signs: Last Vital Signs Pulse 88 04/01/25 10:18 BP 110/68 04/01/25 10:18 Pulse Ox 96 04/01/25 10:18 Oxygen Delivery Method Room Air 04/01/25 10:18 BMI result Body Mass Index 23.9 Const General: cooperative, healthy appearing, no acute distress and well developed Orientation/consciousness: patient oriented x3 Neuro General: patient oriented x3 Cognition (Neuro): normal cognition Psych Appearance: grossly normal Mental Status: mental status grossly normal Speech and movement: Normal speech and movement present Affect: normal affect Attitude: cooperative Thought process: Normal thought process present Office Procedures Botulinum toxin Injection 02656 - Migraine Procedure code (CPT) selection complete Office Meds onabotulinumtoxinA 200 unit solution for injection Performing Provider: Emelyn Morales MD Performing Location: [facility] Administered by: Emelyn Morales MD on 04/01/25 13:17 Dose Route Admin Location Dispensed Lot Number Expiration Date [facility] Landscape Manager 155 unit subcut 200 units [id number] ALLERGAN/BOTOX Total Dispensed Waste 200 units 22.5 % Comments: see hpi Assessment & Plan Assessment & Plan (1) Chronic migraine without aura without status migrainosus, not intractable: Code(s): G43.709 - Chronic migraine without aura, not intractable, without status migrainosus Category: Medical Plan Patient tolerated the procedure well she will call with any side effects Orders: Orders AMB Botulinum toxin Injection Today G43.709 - Chronic migraine without aura, not intractable, without status migrainosus Coding Level of Care Code Est Pt Level 1 (98096) Diagnoses Chronic migraine without aura without status migrainosus, not intractable G43.709 CPT Codes Botox Injection - Botox 3: 85227 - Migraine ([id number])
[2025-04-01 10:18] VITALS: BP 110/68; PULSE 88; O2SAT 96; BMI 23.9
--- OUTSIDE RECORDS SUMMARY | 2025-04-01 12:28 | XMS_ITS | Patient Health Record ---
Author Organization [facility] Address [address] [place] [address] Care Team Providers Care Welding Tester Name Role Phone Julianne Ma Primary Care Provider Massiel Diaz Unavailable [phone] Reason For Referral No Information Medications Medication SIG (Take, Route, Frequency, Duration) Notes Start Date End Date Status School Note . . . Pt was seen in [facility] today; Duration: . 03/06/2019 Active vitamin [...] Insured Coverage Start Date Coverage End Date [facility] [address] [address] [place] [address] [id number] Edmundo Gamboa Natural Child - Insured has Financial Responsibility Medical (General) History Medical History History ICD Code Broken Bones Plantar Fasciitis Surgical History Surgery Date(Month/Year) closed red L Ankle 2013 [facility] 2018
--- OUTSIDE RECORDS SUMMARY | 2025-04-01 12:28 | XMS_ITS | Encounter Summary ---
Author Organization [facility] Address [address] [place] [id number] Phone Care Team Providers Care Primary Mill Roller Name Role Phone Charlotte Chang MD Primary Care Provider [phone] Encounter Details Date Type Department Care Team (Late st Contact Info) Description 10/22/2017 Conversion Encounter [facility] [address] [place] [address] Julianne Ma MD Social History Tobacco Use [...] on filedocumented in this encounter Care Teams Primary Mill Roller Relationship Specialty Start Date End Date Charlotte Chang MD [address] [place] [address] PCP - General Pediatrics 10/07/22 05/19/24 documented as of this encounter
--- OUTSIDE RECORDS SUMMARY | 2025-04-01 12:29 | XMS_ITS | Clinical Summary ---
Author Organization [facility] Address [address] [place] [id number] Phone Care Team Providers Care Cementer Hand Name Role Phone Unavailable Primary Care Provider Unavailabl e Allergies No known active allergies Medications Multiple Vitamin (MULTIVITAMIN) tablet Take 1 tablet by mouth daily. Active Active Problems Problem Noted Date Diagnosed Date Influenza vaccine refused 08/20/2018 Headache 03/19/2015 Overview (02/03/2021): Starting PT in [place] for bilateral MATTHEWS that is interferingher from playing soccer Resolved Problems Problem Noted Date Diagnosed Date Resolved Date Plantar fasciitis of left foot 08/20/2018 09/29/2020 Overview (02/09/2019): 02/08/19: [facility] consult Assessment & Plan (09/27/2019 2:51 [...] complete this topic Procedures * Due to [place] [employer] law, this organization might not be sharing sensitive test results. Procedure Name Priority Date/Time Associated Diagnosis Comments CHLAMYDIA AND GONORRHEA, AMPLIFIED Routine 09/28/2020 3:43 PM EDT Encounter for screening examination for sexually transmitted disease from Last 3 Months or Most Recently Relevant to Health Maintenance Results * Due to [place] [employer] law, this organization might not be sharing sensitive test results. * Chlamydia and Gonorrhoea, Amplified (09/28/2020 3:43 PM EDT) Chlamydia Trachomatis, DNA Probe NEGATIVE (NEG) [facility] Comment: No Chlamydia Trachomatis RNA detected in this patient's sample (REFERENCE RANGE/NORMAL VALUE: NOT DETECTED) Note: This test uses die drawing checker- mediated amplification method to detect rRNA from C. Trachomatis URINE GC AMP PROBE NEGATIVE (NEG) [facility] Comment: No Neisseria Gonorrhoeae RNA detected in this patient's sample (REFERENCE RANGE/NORMAL VALUE: NOT DETECTED) NOTE: This test uses die drawing checker-mediated amplification method to detect rRNA from N.Gonorrhoeae. [...] without risk of sexual abuse. Consult the [facility] if needed. Contact phone number . Therapeutic failure or success cannot be determined with the Aptima Combo2 assay since nucleic acid may persist following appropriate antimicrobial therapy. The Centers for Disease Control and Prevention (CDC) recommends confirmatory retesting using culture or a different nucleic acid amplification test when positive results occur, if indicated. Testing performed or reported by [facility], a Service of [facility], [address] [facility] [place] [address] Mervin Paniagua MD, Oracle Database Architect Urine (Urine) 09/28/2020 3:4 3 PM EDT 09/29/2020 12:25 AM EDT us Julianne Ma MD LAB MICROBIOLOGY - GENERAL ORDER ADALBERTO Final Result [facility] from Last 3 Months or Most Recently Relevant to Health Maintenance Insurance [place]
== END 2025-04-01 10:41 | disposition home or self-care (01) ==
LOC: HO.HSMS 10:14
PROVIDERS: PCP Internal Medicine; Visit Provider Psychiatry & Neurology Neurology
DX: G43.709 Chronic migraine without aura, not intractable, without status migrainosus (principal)
CPT/HCPCS: 64615; 99499

== ENCOUNTER → 2025-04-01 10:13 | Outpatient (BNVA) | payer OTHER, SELFPAY | PROVIDERS: PCP Internal Medicine; Visit Provider Psychiatry & Neurology Neurology | DX: G43.709 Chronic migraine without aura, not intractable, without status migrainosus (principal) | CPT/HCPCS: 64615; J0585 ==